=== PATIENT | male | born 1955 | race Caucasian/White ===

== ENCOUNTER → 2023-10-14 07:34 | Outpatient (REF) | payer MEDICARE, BC, SELFPAY | LOC: MRI 3T 07:34 | PROVIDERS: ATTENDING PHYSICIAN Specialist; FAMILY PHYSICIAN Family Medicine | DX: R97.20 Elevated prostate specific antigen [PSA] (principal) | CPT/HCPCS: 72197; A9575 ==

== ENCOUNTER → 2024-03-17 09:19 | Outpatient (REF) | payer MEDICARE, BC, SELFPAY | LOC: MRI 09:19 | PROVIDERS: ATTENDING PHYSICIAN Physician Assistant Medical; FAMILY PHYSICIAN Family Medicine | DX: M25.552 Pain in left hip (principal); S76.212A Strain of adductor muscle, fascia and tendon of left thigh, initial encounter | CPT/HCPCS: 73721 ==

== ENCOUNTER 2025-03-09 17:32 | Emergency (ER) | payer MEDICARE, BC, SELFPAY ==
[2025-03-09 17:33] VITALS: BP 147/87
--- NOTE | 2025-03-09 17:39 | EDRN ---
Pt prefers to show provider Abraham-portal labs before lab-draw in triage.
[2025-03-09 19:46] VITALS: BP 157/98
[2025-03-09 19:59] VITALS: BMI 28.7
[2025-03-09 20:00] VITALS: BP 152/99
[2025-03-09 20:19] LABS: Hematocrit 40.9 % (39.0-52.0); Hemoglobin 13.8 g/dL (13.0-18.0); Mean Corp Hgb Conc. 33.7 g/dL (33.0-37.0); Mean Corpuscular Volume 94.9 fL (80.0-94.0); Nucleated Red Blood Cells % 0 % (-); Platelet Count 166 10^3/uL (130-400); Red Cell Dist. Width 13.3 % (11.5-14.5)
--- NOTE | 2025-03-09 20:35 | ED.GENMED ---
History of Present Illness
General
Chief Complaint: Abnormal Lab Value
Time Seen by Provider: 03/09/25 20:00
Nursing documentation reviewed up to this point in time: agreed with
History of Present Illness
History of Present Illness:
69-year-old male referred to the ER for abnormal platelet count found on routine outpatient labs today. Patient states that he has been feeling well. He played his best round of golf on Friday. He denies any easy bleeding or bruising. He feels
otherwise well. He reports that his medication as prescribed by his oncologist was decreased from 400 mg to 300 mg 8 weeks ago, otherwise he has had no change in his medications.
Past History
Past History
ED Past Medical History: Arrthythmia (Atrial fib) and Cancer (CML); Negative HTN, Hypercholesterolemia or NIDDM
ED Past Surgical History: Cardiac (Cardioversion)
Social History
Tobacco: Non-smoker
Alcohol: None
Personal:
Living: alone
Review of Systems
Review of Systems
Allergies reviewed?: Yes
Phy Exam
Physical Exam
Physical Exam:
Patient is awake, alert, appears in no acute distress, head is normocephalic atraumatic, conjunctiva pink, mucous membranes moist, GCS is 15, no increased work of breathing, extremities without rash, 2+ radial pulses symmetric, 2+ DP pulses present
symmetric bilateral feet with brisk cap refill
Course
Orders/Labs/Results
Orders:
Orders
03/09/25 20:11
CMP [Comprehensive Metabolic Panel] Urgent
Complete Blood Count/With Diff Urgent
Abnormal Lab Results
03/09/25
20:11
WBC 3.6 L 10^3/uL
(4.8-10.8)
RBC 4.31 L 10^6/uL
(4.70-6.10)
MCV 94.9 H fL
(80.0-94.0)
MCH 32.0 H pg
(27.0-31.0)
Absolute Lymphs (auto) 1.0 L 10^3/uL
(1.2-3.4)
Monocytes % 10.5 H %
(1.7-9.3)
03/09/25 20:11
Platelet count normal at patient's baseline from 04/30/2019-166,000
Vital Signs
Initial and Last Documented VS:
Initial Vital Signs
Temp Pulse Resp BP Pulse Ox
98 F 66 16 147/87 98
03/09/25 17:33 03/09/25 17:33 03/09/25 17:33 03/09/25 17:33 03/09/25 17:33
Last Documented Vital Signs
Temp Pulse Resp BP Pulse Ox
98 F 55 20 152/99 97
03/09/25 17:33 03/09/25 20:26 03/09/25 20:26 03/09/25 20:00 03/09/25 20:26
MDM/Problems Addressed
Differential Diagnosis Includes:
Differential diagnosis considered but not limited to adverse medication reaction, lab error, thrombocytopenia along with other etiologies considered
Chronic conditions affecting care:
CML
*Pulse Oximetry
SaO2: 97
Oxygen Mode of Delivery: Room air
Patient hypoxic: no
*Critical Care Note
Total Time (30-74mins, 75-104mins- exclusive of procedures): Not Applicable
Update Note
Update Note:
I discussed with patient normal platelet count on today's labs. I discussed with him likely etiology of low count due to lab error. He has no worrisome symptoms of true thrombocytopenia. I discussed with patient return precautions. He expressed
understanding of discharge plan and has no questions at the current time
ED Attending Note
-
Portions of this chart may have been created with voice recognition software.� Occasional wrong word or��sound alike� substitutions may have occurred due to the inherent limitations of voice recognition software.
Discharge Plan
Departure
Patient Disposition: Home (Routine Discharge)
Date of Disposition: 03/09/25
Time of Disposition: 20:31
Patient with high blood pressure during this ER visit?: Yes
Discharge Problem:
PROBLEM NOT FOUND
Instructions: BLOOD PRESSURE
Prescriptions:
No Action
tadalafil [Cialis] 5 MG tablet
5 mg PO PRN PRN (Reason: ed)
rivaroxaban [Xarelto] 20 MG tablet
20 mg PO QPM Qty: 30 6RF
nilotinib HCl [Tasigna] 50 MG capsule
150 mg PO Q12
diltiazem HCl 120 MG capsule,extended release 24hr
120 mg PO BID Qty: 60 10RF
Referrals:
Marshal Gan DO [Family Provider, Family Practice]
Activity Restrictions/Additional Instructions:
Please return to the ER if you experience any easy bleeding or bruising. Please follow-up with your doctor for reevaluation and further care
Interventions
Interventions:
*Risk Screen - Suicide Last Done: 03/09/25 17:33
*General Assessment Last Done: 03/09/25 19:59
*Neglect/Abuse Screening Last Done: 03/09/25 17:33
*ED- Fall Risk Assessment Last Done: 03/09/25 19:59
*ED COVID-19 Vaccine History Last Done: 03/09/25 19:59
Discharge Date and Time
Print Language: GEORGIAN
[2025-03-09 20:37] LABS: ALT (SGPT) 16 U/L (0-50); AST (SGOT) 22 U/L (17-59); Albumin 4.0 g/dl (3.5-5.0); Alkaline Phosphatase 81 U/L (38-126); Blood Urea Nitrogen 18 mg/dl (9-20); Calcium 9.0 mg/dl (8.4-10.2); Carbon Dioxide 26 mmol/L (22-30); Chloride 109 mmol/L (98-107); Estimated Creatinine Clearance 82 ml/min; Glucose 94 mg/dl (70-99); Potassium 4.4 mmol/L (3.5-5.1); Sodium 137 mmol/L (135-145); Total Protein 6.3 g/dl (6.3-8.2); eGFR > 60.00
== END 2025-03-09 20:37 | disposition home or self-care (01) ==
LOC: EMR 17:32
PROVIDERS: Emergency Medicine; EMERGENCY PHYSICIAN Emergency Medicine; FAMILY PHYSICIAN Family Medicine
DX: Z71.1 Person with feared health complaint in whom no diagnosis is made (principal); I48.91 Unspecified atrial fibrillation; C92.10 Chronic myeloid leukemia, BCR/ABL-positive, not having achieved remission
CPT/HCPCS: 99283; 80053; 85025

== ENCOUNTER → 2025-03-29 19:01 | Outpatient (REF) | payer MEDICARE, BC, SELFPAY | LOC: MRI 3T 19:01 | PROVIDERS: ATTENDING PHYSICIAN Specialist; FAMILY PHYSICIAN Family Medicine; REFERRING PHYSICIAN Internal Medicine Hematology & Oncology | DX: C61 Malignant neoplasm of prostate (principal) | CPT/HCPCS: 72197; A9575 ==

== ENCOUNTER → 2025-04-29 14:33 | Outpatient (REF) | payer MEDICARE, BC, SELFPAY | LOC: DHSLP 14:33 | PROVIDERS: ATTENDING PHYSICIAN Internal Medicine; FAMILY PHYSICIAN Family Medicine | DX: G47.33 Obstructive sleep apnea (adult) (pediatric) (principal) | CPT/HCPCS: 95800 ==